=== PATIENT | female | born 1990 | race Caucasian/White ===

== ENCOUNTER 2018-10-29 13:01 | Emergency (ER) | payer MEDICAID ==
[~2018-10-29] VITALS: Ht 154.9 cm; Wt 49.9 kg
[2018-10-29 13:18] VITALS: BP_SYST 97
[2018-10-29] MEDS ORDERED: LORazepam 2 MG/ML VIAL (FOR ER USE) IM ONE (14:00)
[2018-10-29 15:28] VITALS: BP_SYST 100
== END 2018-10-29 15:28 | disposition home or self-care (01) ==
LOC: SED 13:01
DX: F41.1 Generalized anxiety disorder (principal); K08.89 Other specified disorders of teeth and supporting structures; F32.9 Major depressive disorder, single episode, unspecified
CPT/HCPCS: 96372; 99284; J2060

== ENCOUNTER 2018-10-31 06:48 | Emergency (ER) | payer MEDICAID ==
[~2018-10-31] VITALS: Ht 152.4 cm; Wt 5.0 kg
[2018-10-31 06:57] VITALS: BP_SYST 111
--- NOTE | 2018-10-31 06:57 | NUR ---
Patient to ER bed 6 to gown for evaluation. Side rails up.
--- NOTE | 2018-10-31 07:01 | NUR ---
Report given to FRANCES Shook.
--- NOTE | 2018-10-31 07:10 | NUR ---
ER Dr. Diaz at bedside examining patient.
--- NOTE | 2018-10-31 07:20 | NUR ---
Patient is awake, alert, and oriented x4. Patient reports neck pain since yesterday, made worse when turning her head. Patient denies nausea and vomiting.
[2018-10-31] MEDS ORDERED: LORazepam 1 MG TABLET PO ONE (07:30)
[2018-10-31] MEDS ORDERED: KETOROLAC TROMETHAMINE 60 MG/2 ML VIAL IM ONE (07:30)
[2018-10-31 07:53] VITALS: BP_SYST 114
--- NOTE | 2018-10-31 07:55 | NUR ---
Patient given written and verbal discharge instructions and verbalizes understanding. ER MD discussed with patient the results and treatment provided. Patient in stable condition. ID arm band removed. Rx of motrin given. Patient educated on pain management and to follow up with PMD. Pain Scale 2/10, MD is aware. Opportunity for questions provided and answered. Medication side effect fact sheet provided.
== END 2018-10-31 07:53 | disposition home or self-care (01) ==
LOC: SED 06:48
DX: S13.9XXA Sprain of joints and ligaments of unspecified parts of neck, initial encounter (principal); F32.9 Major depressive disorder, single episode, unspecified; X58.XXXA Exposure to other specified factors, initial encounter; Y93.89 Activity, other specified; Y92.89 Other specified places as the place of occurrence of the external cause; Y99.8 Other external cause status
CPT/HCPCS: 96372; 99283; J1885

== ENCOUNTER 2019-01-01 17:37 | Emergency (ER) | payer MEDICAID, OTHER ==
[~2019-01-01] VITALS: Ht 152.4 cm; Wt 52.2 kg
[2019-01-01 17:37] VITALS: BP_SYST 115
--- NOTE | 2019-01-01 17:37 | NUR ---
Patient to ER bed 6 to gown for evaluation. Side rails up Assumed care.
--- NOTE | 2019-01-01 17:40 | NUR ---
Patient arrived via POV, AAOx4, and ambulatory with steady gait. Patient c/c of pelvic pain. Patient states she has had swelling to vaginal area associated with pain. Patient states no discharge, or painful urination. Pain originates at opening shooting upward to urterus. Patient states she has frequent BV and yeast infections. Will continue to follow up and monitor.
--- NOTE | 2019-01-01 17:42 | NUR ---
ER at bedside examining patient.
[2019-01-01 18:01] LABS: BASOPHILS # (AUTO) 0.1 K/uL (0.0-0.2); BASOPHILS % (AUTO) 1.1 % (0.0-2.0); EOSINOPHILS # (AUTO) 0.1 K/uL (0.0-0.4); EOSINOPHILS % (AUTO) 2.2 % (0.0-4.0); LYMPHOCYTES # (AUTO) 1.5 K/uL (1.0-5.5); LYMPHOCYTES % (AUTO) 21.6 % (20.5-51.5); MEAN CORPUSCULAR HEMOGLOBIN 29 pg (27-31); MEAN CORPUSCULAR HGB CONC 34 % (32-36); MEAN CORPUSCULAR VOLUME 85 fL (79.0-98.0); MONOCYTES # (AUTO) 0.9 K/uL (0.0-1.0); MONOCYTES % (AUTO) 12.8 % (1.7-9.3); NEUTROPHILS # (AUTO) 4.2 K/uL (1.8-7.7); NEUTROPHILS % (AUTO) 62.3 % (40.0-70.0); PLATELET COUNT (AUTO) 257 K/uL (130-430); RED BLOOD CELL COUNT(AUTO) 4.12 MIL/uL (4.2-6.2); RED CELL DISTRIBUTION WIDTH 14.3 % (9.0-15.0); WHITE BLOOD COUNT (AUTO) 6.8 K/uL (4.8-10.8)
--- NOTE | 2019-01-01 18:29 | NUR ---
Pelvic exam performed by Dr. Wilkins with Yasmeen RN at bedside for entire examination. Patient tolerated procedure well. Patient assisted to position of comfort after examination.
[2019-01-01 18:33] LABS: INR 0.9 (0.8-1.2); PROTHROMBIN TIME 9.4 SECS (9.5-12.5)
[2019-01-01 18:42] LABS: CALCIUM 8.9 mg/dL (8.4-11.0); CREATININE 0.53 mg/dL (0.55-1.30); POTASSIUM 3.6 mmol/L (3.5-5.1)
[2019-01-01 18:45] LABS: TOTAL BILIRUBIN 0.4 mg/dL (0.0-1.0)
--- NOTE | 2019-01-01 19:20 | NUR ---
Patient given written and verbal discharge instructions and verbalizes understanding. ER MD discussed with patient the results and treatment provided. Patient in stable condition. ID arm band removed. Rx of Diflucan given. Patient educated on pain management and to follow up with PMD. Pain Scale 0/10. Opportunity for questions provided and answered. Medication side effect fact sheet provided.
[2019-01-01 19:21] VITALS: BP_SYST 110
[2019-01-03 23:06] LABS: CHLAMYDIA TRACHOMATIS NAA Negative (Negative); NEISSERIA GONORRHOEAE NAA Negative (Negative)
== END 2019-01-01 19:20 | disposition home or self-care (01) ==
LOC: SED 17:37
DX: N76.0 Acute vaginitis (principal); F32.9 Major depressive disorder, single episode, unspecified
CPT/HCPCS: 36415; 80053; 81002; 81025; 82150-TC; 83690-TC; 84703; 85025; 85610-TC; 85730-TC; 86592; 87210-TC; 87491; 87591; 99284

== ENCOUNTER 2019-04-25 12:58 | Emergency (ER) | payer OTHER ==
[~2019-04-25] VITALS: Ht 152.4 cm; Wt 49.9 kg
[2019-04-25 13:46] VITALS: BP_SYST 111
[2019-04-25] MEDS ORDERED: ONDANSETRON 4 MG ODT TAB PO ONE (14:45)
[2019-04-25 14:58] LABS: BASOPHILS % (AUTO) 0.4 % (0.0-2.0); EOSINOPHILS % (AUTO) 0.3 % (0.0-4.0); HEMATOCRIT 36.4 % (36-48); HEMOGLOBIN 12.7 g/dL (12.0-16.0); LYMPHOCYTES # (AUTO) 0.4 K/uL (1.0-5.5); LYMPHOCYTES % (AUTO) 8.9 % (20.5-51.5); MEAN CORPUSCULAR HEMOGLOBIN 29 pg (27-31); MEAN CORPUSCULAR HGB CONC 35 % (32-36); MEAN CORPUSCULAR VOLUME 84 fL (79.0-98.0); MONOCYTES # (AUTO) 0.6 K/uL (0.0-1.0); MONOCYTES % (AUTO) 12.2 % (1.7-9.3); NEUTROPHILS # (AUTO) 3.9 K/uL (1.8-7.7); NEUTROPHILS % (AUTO) 78.2 % (40.0-70.0); PLATELET COUNT (AUTO) 174 K/uL (130-430); RED BLOOD CELL COUNT(AUTO) 4.32 MIL/uL (4.2-6.2); RED CELL DISTRIBUTION WIDTH 13.8 % (9.0-15.0); WHITE BLOOD COUNT (AUTO) 4.9 K/uL (4.8-10.8)
[2019-04-25 15:11] LABS: CALCIUM 8.2 mg/dL (8.4-11.0); CREATININE 0.53 mg/dL (0.55-1.30); POTASSIUM 3.6 mmol/L (3.5-5.1)
[2019-04-25 15:16] LABS: ALBUMIN 4.3 g/dL (3.4-4.8); TOTAL BILIRUBIN 0.3 mg/dL (0.0-1.0)
[2019-04-25] MEDS ORDERED: KETOROLAC TROMETHAMINE 60 MG/2 ML VIAL IM ONE (15:30)
[2019-04-25 15:52] LABS: BILIRUBIN,URINE 1+ (NEGATIVE); BLOOD, URINE NEGATIVE (NEGATIVE); CLARITY/URINE CLEAR (CLEAR); COLOR,URINE YELLOW (YELLOW); GLUCOSE,URINE NEGATIVE (NEGATIVE); KETONES,URINE 2+ (NEGATIVE); LEUKOCYTE ESTERASE ,URINE NEGATIVE (NEGATIVE); NITRITE, URINE NEGATIVE (NEGATIVE); PROTEIN URINE NEGATIVE (NEGATIVE)
[2019-04-25 16:28] VITALS: BP_SYST 111
== END 2019-04-25 16:28 | disposition home or self-care (01) ==
LOC: SED 12:58
DX: K29.00 Acute gastritis without bleeding (principal); J06.9 Acute upper respiratory infection, unspecified; F32.9 Major depressive disorder, single episode, unspecified
CPT/HCPCS: 36415; 80053; 81003; 81025; 83690; 85025; 96372; 99283; J1885; Q0162

== ENCOUNTER 2019-06-27 21:09 | Emergency (ER) | payer OTHER ==
[~2019-06-27] VITALS: Ht 152.4 cm; Wt 52.2 kg
[2019-06-27 22:15] VITALS: BP_SYST 106
--- NOTE | 2019-06-28 01:21 | NUR ---
Patient left without being seen. No further treatment provided. ER MD aware
--- NOTE | 2019-06-28 01:21 | NUR ---
Called in, no answer
== END 2019-06-28 01:21 | disposition left against medical advice (07) ==
LOC: SED 21:09
DX: N93.9 Abnormal uterine and vaginal bleeding, unspecified (principal); Z53.21 Procedure and treatment not carried out due to patient leaving prior to being seen by health care provider